=== PATIENT | male | born 1960 | race African-American/Black ===

== ENCOUNTER 2021-05-23 01:02 | Emergency (ER) | payer OTHER, SELFPAY | END 2021-05-23 05:05 | disposition home or self-care (01) | LOC: ERS 01:02 | DX: F10.129 Alcohol abuse with intoxication, unspecified (principal); S00.81XA Abrasion of other part of head, initial encounter; S09.90XA Unspecified injury of head, initial encounter; I10 Essential (primary) hypertension; F17.210 Nicotine dependence, cigarettes, uncomplicated; W19.XXXA Unspecified fall, initial encounter; W22.8XXA Striking against or struck by other objects, initial encounter | CPT/HCPCS: 70450; 72125; 93005 ==

== ENCOUNTER 2021-09-17 20:09 | Emergency (ER) | payer OTHER ==
[2021-09-17] MEDS ORDERED: Albuterol 200 PUFF (6.7GM INHALER) ONE (20:40)
== END 2021-09-17 21:02 | disposition home or self-care (01) ==
LOC: ERS 20:09
DX: J06.9 Acute upper respiratory infection, unspecified (principal); R07.89 Other chest pain; I10 Essential (primary) hypertension; F17.210 Nicotine dependence, cigarettes, uncomplicated; Z79.899 Other long term (current) drug therapy
CPT/HCPCS: 71045

== ENCOUNTER 2021-09-23 11:23 | Inpatient (IN) | payer OTHER ==
[2021-09-23 12:45] LABS: #Basophils 0.1 thou/uL (0.0-0.2); #Eosinphils 0.1 thou/uL (0.0-0.7); #Lymphocytes 2.5 thou/uL (1.20-3.40); #Monocytes 0.7 thou/uL (0.11-0.59); #Neutrophils 5.1 thou/uL (1.40-6.50); %Basophils 0.7 % (0.0-1.0); %Lymphocytes 29.4 % (21.0-51.0); %Monocytes 8.1 % (0.0-10.0); %Neutrophils 60.7 % (42.0-75.0); Hemoglobin 14.2 g/dL (14.0-18.0); Mean Corpuscular HGB CONC 32.3 g/dL (32.0-36.0); Mean Corpuscular Volume 89.9 fL (78.0-98.0); Mean Platelet Volume 7.9 fL (7.4-10.4); Platelet Count 232 thou/uL (130-400); RBC Distribution Width 12.7 % (11.5-14.5); Red Blood Cell (RBC) Count 4.88 mill/uL (4.70-6.10); White Blood Cell (WBC) Count 8.5 thou/uL (4.8-10.8)
[2021-09-23 13:39] LABS: ALT (SGPT) 43 U/L (8-55); AST (SGOT) 62 U/L (5-34); Alkaline Phosphatase 39 U/L (40-110); Anion Gap 15 mmol/L (10-20); BUN (Urea Nitrogen) 5 mg/dL (8.4-25.7); Bilirubin, Total 0.8 mg/dL (0.2-1.2); Calc. Creatinine Clearance 0 mL/min (70-130); Calcium 9.6 mg/dL (7.8-10.44); Carbon Dioxide 28 mmol/L (22-29); Chloride 100 mmol/L (98-107); Estimated GFR 66; Globulin 2.9 g/dL (2.4-3.5); Glucose 97 mg/dL (70-105); Lipase 25 U/L (8-78); Potassium 3.5 mmol/L (3.5-5.1); Protein, Total 6.9 g/dL (6.0-8.3); Sodium 140 mmol/L (136-145)
[2021-09-23] MEDS ORDERED: Iopamidol-370 76% 500 ML 1 ML ONE (14:12)
[2021-09-23 15:11] LABS: Bilirubin Negative (Negative); Blood, Urine Negative (Negative); Clarity Clear (Clear); Glucose, Urine (Dipstick) Normal (Negative); Ketone, Urine Negative (Negative); Leukocyte Negative Leu/uL (Negative); Nitrite Negative (Negative); Protein, Urine (Dipstick) 20 mg/dL (Neg-Trace); Specific Gravity, Urine 1.024 (1.002-1.036)
[2021-09-23 15:16] LABS: SARS-CoV-2 NAA Rapid Test Not Detected (NotDetected)
[2021-09-23 16:01] LABS: Troponin I 0.029 ng/mL (< 0.028)
[2021-09-23 16:01] LABS: Amphetamine Not Detected (NotDetected); Barbiturates Screen Not Detected (NotDetected); Benzodiazepine Screen Not Detected (NotDetected); Cocaine Metabolite Screen Not Detected (NotDetected); Methadone Not Detected (NotDetected); Methamphetamine Not Detected (NotDetected); Opiate Screen Not Detected (NotDetected); Oxycodone Screen Not Detected (NotDetected); Phencyclidine (PCP) Not Detected (NotDetected); THC/Cannabinoid Screen Not Detected (NotDetected); Tricyclic Screen Not Detected (NotDetected)
[2021-09-23 16:28] LABS: Alcohol Less than 10 mg/dL (Less than 10); Salicylate Less than 8.0 mg/dL (15.0-30.0)
[2021-09-23 16:54] VITALS: BMI 28.7
[2021-09-23] MEDS: Nitroglycerin 0.4 MG TAB (25 Tab Bottle) SL PRN ×2 (18:12→18:34)
[2021-09-23 19:09] LABS: Troponin I 0.094 ng/mL (< 0.028)
[2021-09-23] MEDS ORDERED: Albuterol Sulfate 2.5 mg/0.5 ml Neb NEB PRN (20:17)
[2021-09-23] MEDS: Benztropine 1 MG TAB PO SCH (21:25)
[2021-09-23] MEDS: PALIPERIDONE 6 MG PO SCH (21:43)
[2021-09-24 00:24] LABS: Bacteria/HPF None Seen HPF (None Seen); Bilirubin Negative (Negative); Blood, Urine Negative (Negative); Clarity Clear (Clear); Glucose, Urine (Dipstick) Normal (Negative); Ketone, Urine Negative (Negative); Leukocyte Negative Leu/uL (Negative); Nitrite Negative (Negative); Protein, Urine (Dipstick) Negative (Neg-Trace); RBC/HPF 0-3 HPF (0-3); Specific Gravity, Urine 1.017 (1.002-1.036); Squamous Epithelial 0-3 HPF (0-3); Urobilinogen Normal mg/dL (Less than 2); WBC/HPF 0-3 HPF (0-3)
[2021-09-24 00:25] LABS: Urine Culture Reflex No No
[2021-09-24] MEDS: Nitroglycerin 0.4 MG TAB (25 Tab Bottle) SL PRN ×2 (04:15→04:38)
[2021-09-24] MEDS: Acetaminophen 325 MG TAB PO PRN (04:45)
[2021-09-24] MEDS: Nitroglycerin 2% Ointment 1 INCH/1 GM Packet TOP SCH ×3 (04:45→20:53)
[2021-09-24] MEDS: Aspirin 325 mg Enteric Coated Tablet PO SCH (04:52)
[2021-09-24 05:39] LABS: Troponin I 0.123 ng/mL (< 0.028)
[2021-09-24] MEDS: Atorvastatin Calcium 20 MG TAB PO SCH (08:30)
[2021-09-24] MEDS: Amlodipine 5 MG TAB PO SCH (08:30)
[2021-09-24] MEDS: Benztropine 1 MG TAB PO SCH ×2 (08:31→20:53)
[2021-09-24] MEDS ORDERED: Communication Order-Pharmacy FS SCH (17:00)
[2021-09-24] MEDS: PALIPERIDONE 6 MG PO SCH (20:53)
[2021-09-25] MEDS ORDERED: Albuterol Sulfate 2.5 mg/3 ml Neb NEB PRN (02:57)
[2021-09-25 05:10] LABS: Troponin I 0.118 ng/mL (< 0.028)
[2021-09-25 05:12] LABS: Chloride 111 mmol/L (98-107); Potassium 4.1 mmol/L (3.5-5.1); Sodium 139 mmol/L (136-145)
[2021-09-25 05:13] LABS: Calcium 9.4 mg/dL (7.8-10.44); Glucose 84 mg/dL (70-105)
[2021-09-25 05:14] LABS: Triglycerides 50 mg/dL (Less than 150)
[2021-09-25 05:15] LABS: Anion Gap 15 mmol/L (10-20); Carbon Dioxide 17 mmol/L (22-29)
[2021-09-25 05:17] LABS: BUN (Urea Nitrogen) 10 mg/dL (8.4-25.7); Calc. Creatinine Clearance 104 mL/min (70-130); Estimated GFR 99
[2021-09-25 05:18] LABS: Cholesterol 124 mg/dl (< 200 Desired)
[2021-09-25 05:19] LABS: Cardiac Risk 2.7 (Less than 4.5); HDL Cholesterol 46 mg/dL (>60 Neg Risk); LDL Cholesterol, Calculated 68 mg/dL
[2021-09-25] MEDS: Amlodipine 5 MG TAB PO SCH (05:45)
[2021-09-25] MEDS: Aspirin 325 mg Enteric Coated Tablet PO SCH (05:45)
[2021-09-25] MEDS: Benztropine 1 MG TAB PO SCH ×2 (05:46→20:52)
[2021-09-25] MEDS: Nitroglycerin 2% Ointment 1 INCH/1 GM Packet TOP SCH ×3 (05:46→20:54)
[2021-09-25] MEDS: Atorvastatin Calcium 20 MG TAB PO SCH (05:46)
[2021-09-25] MEDS ORDERED: Amlodipine 5 MG TAB PO SCH (09:00)
[2021-09-25] MEDS: Acetaminophen 325 MG TAB PO PRN ×2 (09:02→14:12)
[2021-09-25] MEDS ORDERED: Iopamidol 370 76% 100 ML VIAL ONE (09:42)
[2021-09-25] MEDS ORDERED: Lidocaine 1% (PF) 30 ML VIAL ONE (11:13)
[2021-09-25] MEDS ORDERED: Midazolam HCl 2 mg/2 ml Vial ONE (12:19)
[2021-09-25] MEDS ORDERED: Atropine Sulfate 1 mg/10 ml Syringe ONE (12:20)
[2021-09-25] MEDS ORDERED: Fentanyl 100 MCG/2 ML VIAL ONE (12:20)
[2021-09-25] MEDS ORDERED: Heparin 10,000 UNITS/ 10 ML VIAL ONE (12:20)
[2021-09-25] MEDS ORDERED: hydrALAZINE 20 MG/ML VIAL SLOW IVP PRN (16:10)
[2021-09-25] MEDS ORDERED: Sodium Chloride 0.9% 1,000 ML IV SCH (17:45)
[2021-09-25] MEDS: PALIPERIDONE 6 MG PO SCH (20:53)
[2021-09-26 05:07] LABS: Anion Gap 13 mmol/L (10-20); BUN (Urea Nitrogen) 8 mg/dL (8.4-25.7); Calc. Creatinine Clearance 108 mL/min (70-130); Calcium 9.4 mg/dL (7.8-10.44); Carbon Dioxide 22 mmol/L (22-29); Chloride 105 mmol/L (98-107); Estimated GFR 101; Glucose 85 mg/dL (70-105); Potassium 3.6 mmol/L (3.5-5.1); Sodium 136 mmol/L (136-145)
[2021-09-26] MEDS: Nitroglycerin 2% Ointment 1 INCH/1 GM Packet TOP SCH (07:30)
[2021-09-26 08:11] VITALS: BP 154/82; TEMP 97.6
[2021-09-26] MEDS ORDERED: Amlodipine 10 MG TAB PO SCH (09:00)
[2021-09-26] MEDS: Aspirin 325 mg Enteric Coated Tablet PO SCH (09:35)
[2021-09-26] MEDS: Benztropine 1 MG TAB PO SCH (09:35)
[2021-09-26] MEDS: Atorvastatin Calcium 20 MG TAB PO SCH (09:35)
== END 2021-09-26 10:49 | disposition home or self-care (01) | DRG 281 ==
LOC: ERS 11:23 → 2SW 15:32 → OBSVTOIN 09-25 18:11
PROVIDERS: ADMIT Internal Medicine; ATTEND Hospitalist
PROC: 4A023N7 Measurement of Cardiac Sampling and Pressure, Left Heart, Percutaneous Approach (ICD-10-PCS; principal; 2021-09-25)
PROC: B2111ZZ Fluoroscopy of Multiple Coronary Arteries using Low Osmolar Contrast (ICD-10-PCS; 2021-09-25)
PROC: B2151ZZ Fluoroscopy of Left Heart using Low Osmolar Contrast (ICD-10-PCS; 2021-09-25)
DX: I21.4 Non-ST elevation (NSTEMI) myocardial infarction (principal); F20.0 Paranoid schizophrenia; F31.9 Bipolar disorder, unspecified; F17.210 Nicotine dependence, cigarettes, uncomplicated; Z20.822 Contact with and (suspected) exposure to COVID-19; I35.1 Nonrheumatic aortic (valve) insufficiency; I35.0 Nonrheumatic aortic (valve) stenosis; I11.9 Hypertensive heart disease without heart failure; I25.10 Atherosclerotic heart disease of native coronary artery without angina pectoris; Z79.82 Long term (current) use of aspirin; Z79.899 Other long term (current) drug therapy
CPT/HCPCS: 36415; 71046; 74177; 80048; 80053; 80061; 80306; 80307; 81001; 81003; 83036; 83690; 83880; 84484; 85025; 85379; 93005; 93010; 93306; 93458; 94760; 96374; 99152; 99153; C1769; G0378; J0360; J0461; J1644; J2001; J2250; J3010; J7050; Q9967; U0002

== ENCOUNTER 2022-02-08 15:34 | Emergency (ER) | payer OTHER ==
[2022-02-08 17:21] LABS: #Eosinphils 0.1 thou/uL (0.0-0.7); #Lymphocytes 2.7 thou/uL (1.20-3.40); #Monocytes 0.8 thou/uL (0.11-0.59); #Neutrophils 5.2 thou/uL (1.40-6.50); %Basophils 0.4 % (0.0-1.0); %Eosinophils 1.6 % (0.0-10.0); %Lymphocytes 30.4 % (21.0-51.0); %Monocytes 8.9 % (0.0-10.0); %Neutrophils 58.8 % (42.0-75.0); Mean Corpuscular HGB CONC 32.9 g/dL (32.0-36.0); Mean Corpuscular Hemoglobin 31.1 pg (27.0-31.0); Mean Corpuscular Volume 94.4 fl (78.0-98.0); Mean Platelet Volume 7.4 fL (7.4-10.4); Platelet Count 251 10x3/uL (130-400); RBC Distribution Width 12.5 % (11.5-14.5); Red Blood Cell (RBC) Count 4.84 mill/uL (4.70-6.10); White Blood Cell (WBC) Count 8.8 10x3/uL (4.8-10.8)
[2022-02-08 17:40] LABS: ALT (SGPT) 34 U/L (8-55); AST (SGOT) 38 U/L (5-34); Albumin 4.1 g/dL (3.5-5.0); Alkaline Phosphatase 52 U/L (40-110); Anion Gap 15 mmol/L (10-20); BUN (Urea Nitrogen) 9 mg/dL (8.4-25.7); Bilirubin, Total 0.3 mg/dL (0.2-1.2); Calc. Creatinine Clearance 0 mL/min (70-130); Calcium 9.6 mg/dL (7.8-10.44); Carbon Dioxide 24 mmol/L (22-29); Chloride 104 mmol/L (98-107); Estimated GFR 89; Globulin 3.5 g/dL (2.4-3.5); Glucose 79 mg/dL (70-105); Potassium 4.2 mmol/L (3.5-5.1); Protein, Total 7.6 g/dL (6.0-8.3); Sodium 139 mmol/L (136-145)
== END 2022-02-09 00:53 | disposition home or self-care (01) ==
LOC: ERS 15:34
DX: I10 Essential (primary) hypertension (principal); F17.210 Nicotine dependence, cigarettes, uncomplicated; I44.0 Atrioventricular block, first degree; I45.2 Bifascicular block; Z79.899 Other long term (current) drug therapy
CPT/HCPCS: 36415; 70450; 71045; 80053; 84484; 85025; 93005; 94760

== ENCOUNTER 2022-04-20 08:55 | Observation (INO) | payer OTHER, SELFPAY ==
[2022-04-20 09:25] LABS: #Basophils 0.1 thou/uL (0.0-0.2); #Eosinphils 0.1 thou/uL (0.0-0.7); #Lymphocytes 2.3 thou/uL (1.20-3.40); #Monocytes 0.8 thou/uL (0.11-0.59); %Basophils 0.6 % (0.0-1.0); %Eosinophils 0.8 % (0.0-10.0); %Lymphocytes 25.1 % (21.0-51.0); %Monocytes 8.7 % (0.0-10.0); %Neutrophils 64.8 % (42.0-75.0); Hemoglobin 15.9 g/dL (14.0-18.0); Mean Corpuscular HGB CONC 32.5 g/dL (32.0-36.0); Mean Corpuscular Hemoglobin 30.5 pg (27.0-31.0); Mean Corpuscular Volume 93.8 fl (78.0-98.0); Mean Platelet Volume 8.1 fL (7.4-10.4); Platelet Count 183 10x3/uL (130-400); RBC Distribution Width 13.8 % (11.5-14.5); Red Blood Cell (RBC) Count 5.21 mill/uL (4.70-6.10); White Blood Cell (WBC) Count 9.2 10x3/uL (4.8-10.8)
[2022-04-20] MEDS ORDERED: Iopamidol-370 76% 500 ML 1 ML ONE (09:28)
[2022-04-20 09:44] LABS: ALT (SGPT) 50 U/L (8-55); AST (SGOT) 68 U/L (5-34); Albumin 4.2 g/dL (3.5-5.0); Alkaline Phosphatase 50 U/L (40-110); Anion Gap 19 mmol/L (10-20); BUN (Urea Nitrogen) 8 mg/dL (8.4-25.7); Bilirubin, Total 1.4 mg/dL (0.2-1.2); Calc. Creatinine Clearance 0 mL/min (70-130); Calcium 10.2 mg/dL (7.8-10.44); Carbon Dioxide 23 mmol/L (22-29); Chloride 99 mmol/L (98-107); Estimated GFR 89; Globulin 3.7 g/dL (2.4-3.5); Glucose 106 mg/dL (70-105); Potassium 3.7 mmol/L (3.5-5.1); Protein, Total 7.9 g/dL (6.0-8.3); Sodium 137 mmol/L (136-145)
[2022-04-20 10:07] LABS: CKMB 4.1 ng/mL (0-6.6)
[2022-04-20 10:29] LABS: Acetaminophen Less than 10.0 mcg/mL (10.0-30.0); Alcohol Less than 10 mg/dL (Less than 10); Salicylate Less than 8.0 mg/dL (15.0-30.0)
[2022-04-20 11:25] LABS: Bacteria/HPF None Seen HPF (None Seen); Bilirubin Negative (Negative); Blood, Urine Negative (Negative); Clarity Clear (Clear); Glucose, Urine (Dipstick) Normal (Negative); Ketone, Urine 40 mg/dL (Negative); Leukocyte 25 Leu/uL (Negative); Nitrite Negative (Negative); Protein, Urine (Dipstick) 30 mg/dL (Neg-Trace); RBC/HPF 0-3 HPF (0-3); Squamous Epithelial 0-3 HPF (0-3); Urobilinogen 6 mg/dL (Less than 2); pH, Urine 7.5 (5.0-9.0)
[2022-04-20 11:33] LABS: Amphetamine Not Detected (NotDetected); Barbiturates Screen Not Detected (NotDetected); Benzodiazepine Screen Not Detected (NotDetected); Cocaine Metabolite Screen Not Detected (NotDetected); Methadone Not Detected (NotDetected); Methamphetamine Not Detected (NotDetected); Opiate Screen Not Detected (NotDetected); Oxycodone Screen Not Detected (NotDetected); Phencyclidine (PCP) Not Detected (NotDetected); THC/Cannabinoid Screen Not Detected (NotDetected); Tricyclic Screen Not Detected (NotDetected)
[2022-04-20] MEDS ORDERED: Meclizine HCl 25 MG TAB ONE (12:20)
[2022-04-20] MEDS ORDERED: Aspirin 325 MG TAB ONE (13:06)
[2022-04-20 13:17] LABS: Troponin I 0.013 ng/mL (< 0.028)
[2022-04-20] MEDS ORDERED: Acetaminophen 650 MG Suppository PR PRN (14:07)
[2022-04-20] MEDS ORDERED: Acetaminophen 325 MG TAB PO PRN (14:07)
[2022-04-20 16:26] LABS: Troponin I 0.024 ng/mL (< 0.028)
[2022-04-20 16:27] VITALS: BMI 26.2
[2022-04-20] MEDS: Sodium Chloride 0.9% 1,000 ML IV SCH (18:00)
[2022-04-20] MEDS ORDERED: Lorazepam 2 MG/ML VIAL IM PRN (18:20)
[2022-04-20] MEDS ORDERED: Lorazepam 1 MG TAB PO PRN (18:20)
[2022-04-20] MEDS ORDERED: Ondansetron ODT 4 MG TAB PO PRN (18:20)
[2022-04-20] MEDS ORDERED: Electrolyte Replacement Protocol 1 EACH FS SCH (18:30)
[2022-04-20] MEDS: Benztropine 1 MG TAB PO SCH (20:49)
[2022-04-20] MEDS ORDERED: Atorvastatin Calcium 20 MG TAB PO SCH (21:00)
[2022-04-20] MEDS ORDERED: PALIPERIDONE 6 MG PO SCH (21:00)
[2022-04-21] MEDS: Sodium Chloride 0.9% 1,000 ML IV SCH ×2 (04:03→14:14)
[2022-04-21 05:01] LABS: #Basophils 0.1 thou/uL (0.0-0.2); #Eosinphils 0.1 thou/uL (0.0-0.7); #Monocytes 0.6 thou/uL (0.11-0.59); #Neutrophils 4.1 thou/uL (1.40-6.50); %Basophils 1.2 % (0.0-1.0); %Eosinophils 1.7 % (0.0-10.0); %Lymphocytes 28.6 % (21.0-51.0); %Monocytes 8.6 % (0.0-10.0); Hemoglobin 14.7 g/dL (14.0-18.0); Mean Corpuscular HGB CONC 32.7 g/dL (32.0-36.0); Mean Corpuscular Volume 94.8 fl (78.0-98.0); Platelet Count 155 10x3/uL (130-400); RBC Distribution Width 13.6 % (11.5-14.5); Red Blood Cell (RBC) Count 4.75 mill/uL (4.70-6.10); White Blood Cell (WBC) Count 6.8 10x3/uL (4.8-10.8)
[2022-04-21 05:31] LABS: Anion Gap 12 mmol/L (10-20); BUN (Urea Nitrogen) 6 mg/dL (8.4-25.7); Calc. Creatinine Clearance 95 mL/min (70-130); Calcium 9.5 mg/dL (7.8-10.44); Carbon Dioxide 24 mmol/L (22-29); Chloride 105 mmol/L (98-107); Estimated GFR 99; Glucose 95 mg/dL (70-105); Potassium 3.9 mmol/L (3.5-5.1); Sodium 137 mmol/L (136-145)
[2022-04-21] MEDS ORDERED: Folic Acid 1 MG TAB PO SCH (09:00)
[2022-04-21] MEDS ORDERED: Multivit, Therapeutic 1 TAB PO SCH (09:00)
[2022-04-21] MEDS ORDERED: Aspirin 325 mg Enteric Coated Tablet PO SCH (09:00)
[2022-04-21] MEDS: Benztropine 1 MG TAB PO SCH (09:28)
[2022-04-21 16:06] VITALS: BP 122/77; TEMP 97.7
[2022-04-21] MEDS ORDERED: Lorazepam 1 MG TAB PO PRN (18:20)
[2022-04-22] MEDS ORDERED: Lorazepam 1 MG TAB PO PRN (18:20)
[2022-04-23] MEDS ORDERED: Lorazepam 0.5 MG TAB PO PRN (18:20)
== END 2022-04-21 17:45 | disposition home or self-care (01) ==
LOC: ERS 08:55 → 2SW 13:03
PROVIDERS: ADMIT Hospitalist; ATTEND Physician Assistant
DX: R42 Dizziness and giddiness (principal); R55 Syncope and collapse; I11.9 Hypertensive heart disease without heart failure; E78.5 Hyperlipidemia, unspecified; F20.0 Paranoid schizophrenia; F31.9 Bipolar disorder, unspecified; I08.3 Combined rheumatic disorders of mitral, aortic and tricuspid valves; F17.210 Nicotine dependence, cigarettes, uncomplicated; F14.11 Cocaine abuse, in remission; F10.10 Alcohol abuse, uncomplicated; I67.2 Cerebral atherosclerosis; I25.2 Old myocardial infarction; I25.10 Atherosclerotic heart disease of native coronary artery without angina pectoris; Z79.899 Other long term (current) drug therapy; Z20.822 Contact with and (suspected) exposure to COVID-19; Y90.0 Blood alcohol level of less than 20 mg/100 ml
CPT/HCPCS: 36415; 36416; 70450; 71045; 71275; 80048; 80053; 80306; 80307; 81003; 81015; 82553; 83880; 84484; 85025; 85379; 93005; 93306; 96360; 96361; G0378; J7050; Q9967; U0003; U0005

== ENCOUNTER 2023-11-15 13:23 | Emergency (ER) | payer OTHER ==
[2023-11-15 14:41] LABS: #Basophils 0.07 10x3/uL (0.0-0.2); %Basophils 0.9 % (0.0-1.0); %Lymphocytes 31.5 % (21.0-51.0); %Monocytes 8.1 % (0.0-10.0); %Neutrophils 57.2 % (42.0-75.0); Hematocrit 38.1 % (42.0-52.0); Mean Corpuscular HGB CONC 31.5 g/dL (32.0-36.0); Mean Corpuscular Hemoglobin 28.8 pg (27.0-31.0); Mean Corpuscular Volume 91.4 fL (78.0-98.0); Mean Platelet Volume 9.3 fL (7.4-10.4); Platelet Count 239 10x3/uL (130-400); RBC Distribution Width 15.9 % (11.5-14.5); Red Blood Cell (RBC) Count 4.17 mill/uL (4.70-6.10)
[2023-11-15 14:57] LABS: ALT (SGPT) 29 U/L (8-55); AST (SGOT) 31 U/L (5-34); Albumin 3.7 g/dL (3.4-4.8); Alkaline Phosphatase 47 U/L (40-110); Anion Gap 10 mmol/L (10-20); BUN (Urea Nitrogen) 16 mg/dL (8.4-25.7); Bilirubin, Total 0.4 mg/dL (0.2-1.2); Calc. Creatinine Clearance 0 mL/min (70-130); Calcium 9.4 mg/dL (7.8-10.44); Carbon Dioxide 27 mmol/L (23-31); Chloride 107 mmol/L (98-107); Estimated GFR 78; Globulin 3.4 g/dL (2.4-3.5); Glucose 75 mg/dL (80-115); Potassium 3.8 mmol/L (3.5-5.1); Protein, Total 7.1 g/dL (5.8-8.1); Sodium 140 mmol/L (136-145)
[2023-11-15 15:03] LABS: Troponin I Less than 0.010 ng/mL (< 0.028)
== END 2023-11-15 17:25 | disposition left against medical advice (07) ==
LOC: ERS 13:23
DX: Z53.21 Procedure and treatment not carried out due to patient leaving prior to being seen by health care provider (principal)
CPT/HCPCS: 36415; 71045; 80053; 84484; 85025; 93005

== ENCOUNTER 2024-12-14 13:41 | Inpatient (IN) | payer OTHER, SELFPAY ==
[~2024-12-14 13:41] MED LIST: Iopamidol-370 76% 500 ML MDV (1 ML CHARGE) ONE
[2024-12-14] MEDS ORDERED: Acetaminophen 500 MG TAB ONE (14:41)
[2024-12-14 14:59] LABS: #Basophils 0.04 10x3/uL (0.0-0.2); #Eosinophils 0.08 10x3/uL (0.0-0.7); #Monocytes 0.67 10x3/uL (0.11-0.59); #Neutrophils 3.77 10x3/uL (1.40-6.50); %Basophils 0.7 % (0.0-1.0); %Eosinophils 1.4 % (0.0-10.0); %Lymphocytes 22.3 % (21.0-51.0); %Monocytes 11.4 % (0.0-10.0); %Neutrophils 64.0 % (42.0-75.0); Hematocrit 32.5 % (42.0-52.0); Hemoglobin 10.5 g/dL (14.0-18.0); Mean Corpuscular Hemoglobin 24.1 pg (27.0-31.0); Mean Corpuscular Volume 74.5 fL (78.0-98.0); Platelet Count 319 10x3/uL (130-400); Red Blood Cell (RBC) Count 4.36 mill/uL (4.70-6.10); White Blood Cell (WBC) Count 5.88 10x3/uL (4.8-10.8)
[2024-12-14 15:15] LABS: ALT (SGPT) 35 U/L (Less than 45); AST (SGOT) 49 U/L (11-34); Albumin 4.0 g/dL (3.1-4.5); Alkaline Phosphatase 42 U/L (40-110); Anion Gap 16 mmol/L (10-20); BUN (Urea Nitrogen) 11 mg/dL (8.4-25.7); Bilirubin, Total 0.3 mg/dL (0.3-1.2); Calc. Creatinine Clearance 0 mL/min (70-130); Calcium 9.8 mg/dL (7.8-10.44); Carbon Dioxide 23 mmol/L (23-31); Chloride 101 mmol/L (98-107); Globulin 4.0 g/dL (2.4-3.5); Glucose 64 mg/dL (80-115); Lipase 44 U/L (8-78); Potassium 3.9 mmol/L (3.5-5.1); Sodium 136 mmol/L (136-145)
[2024-12-14 15:29] LABS: Anisocytosis MODERATE=16-30 cells HPF (0-5); Burr Cells SLIGHT = 2-5 cells HPF (0-1); Macrocytosis SLIGHT = 6-15 cells HPF (0-5); Platelet Adequacy Comment Platelets Normal; Poikilocytosis MODERATE=16-30 cells HPF (0-5); Polychromasia SLIGHT = 2-3 cells HPF (0-2); Schistocytes SLIGHT = 2-5 cells HPF (0-1); Target Cells SLIGHT = 2-5 cells HPF (0-1)
[2024-12-14 15:29] LABS: Bacteria/HPF None Seen HPF (None Seen); CAUTI Indications for Culture Immunosuppressed; Glucose, Urine (Dipstick) Normal (Negative); Leukocyte Negative Leu/uL (Negative); Protein, Urine (Dipstick) Negative (Neg-Trace); RBC/HPF 0-3 HPF (0-3); Specific Gravity, Urine 1.008 (1.002-1.036); WBC/HPF 0-3 HPF (0-3)
[2024-12-14 15:31] LABS: Urine Culture Reflex Yes Yes
[2024-12-14] MEDS ORDERED: Acetaminophen 325 MG TAB PO PRN (17:06)
[2024-12-14] MEDS ORDERED: Guaifenesin DM 100-10/5 ML UDCUP PO PRN (17:06)
[2024-12-14] MEDS ORDERED: Electrolyte Replacement Protocol 1 EACH FS SCH (17:15)
[2024-12-14] MEDS: Enoxaparin 40 MG (0.4 mL) SYRINGE SC SCH (21:19)
[2024-12-14] MEDS: Famotidine/PF 20 mg/2ml Vial SLOW IVP SCH (21:19)
[2024-12-14] MEDS: Acetaminophen/Codeine 30-300mg Tablet PO PRN (21:19)
[2024-12-14 22:59] VITALS: BMI 23.5
[2024-12-15 05:50] LABS: #Basophils 0.06 10x3/uL (0.0-0.2); #Eosinophils 0.16 10x3/uL (0.0-0.7); #Monocytes 0.62 10x3/uL (0.11-0.59); #Neutrophils 2.00 10x3/uL (1.40-6.50); %Basophils 1.2 % (0.0-1.0); %Eosinophils 3.2 % (0.0-10.0); %Lymphocytes 42.4 % (21.0-51.0); %Monocytes 12.5 % (0.0-10.0); %Neutrophils 40.5 % (42.0-75.0); Hematocrit 33.5 % (42.0-52.0); Hemoglobin 10.5 g/dL (14.0-18.0); Mean Corpuscular Hemoglobin 23.6 pg (27.0-31.0); Mean Corpuscular Volume 75.3 fL (78.0-98.0); Platelet Count 327 10x3/uL (130-400); Red Blood Cell (RBC) Count 4.45 mill/uL (4.70-6.10); White Blood Cell (WBC) Count 4.95 10x3/uL (4.8-10.8)
[2024-12-15 06:09] LABS: ALT (SGPT) 28 U/L (Less than 45); AST (SGOT) 35 U/L (11-34); Albumin 3.5 g/dL (3.1-4.5); Alkaline Phosphatase 37 U/L (40-110); Anion Gap 11 mmol/L (10-20); BUN (Urea Nitrogen) 12 mg/dL (8.4-25.7); Bilirubin, Total 0.3 mg/dL (0.3-1.2); Calc. Creatinine Clearance 74 mL/min (70-130); Calcium 9.4 mg/dL (7.8-10.44); Carbon Dioxide 25 mmol/L (23-31); Chloride 108 mmol/L (98-107); Globulin 3.5 g/dL (2.4-3.5); Glucose 76 mg/dL (80-115); Potassium 3.6 mmol/L (3.5-5.1); Sodium 140 mmol/L (136-145)
[2024-12-15 09:57] LABS: Iron 21 ug/dL (65-175); Iron Binding Capacity, Total 465 mcg/dL (261-462)
[2024-12-15] MEDS: Nitroglycerin 0.4 MG TAB (25 Tab Bottle) SL PRN (22:05)
[2024-12-16 05:08] LABS: Hematocrit 34.9 % (42.0-52.0); Hemoglobin 10.7 g/dL (14.0-18.0); Mean Corpuscular Hemoglobin 23.5 pg (27.0-31.0); Mean Corpuscular Volume 76.7 fL (78.0-98.0); Platelet Count 361 10x3/uL (130-400); Red Blood Cell (RBC) Count 4.55 mill/uL (4.70-6.10); White Blood Cell (WBC) Count 5.98 10x3/uL (4.8-10.8)
[2024-12-16] MEDS: Isosorbide Mononitrate 60 MG ER.TAB PO SCH (09:38)
[2024-12-16] MEDS: Aspirin Chewable 81 MG TAB PO SCH (09:38)
[2024-12-16] MEDS: Ferrous Gluconate 324 MG TAB PO SCH (09:38)
[2024-12-16] MEDS: Methocarbamol 500 MG TAB PO PRN (11:36)
[2024-12-17] MEDS ORDERED: Ketorolac Tromethamine 30 MG (1 mL) VIAL IVP PRN (09:14)
[2024-12-17] MEDS: Ibuprofen 200 MG TAB PO SCH (12:22)
[2024-12-17 12:34] VITALS: BP 158/86; TEMP 97.6
== END 2024-12-17 15:24 | disposition home or self-care (01) | DRG 307 ==
LOC: ERS 13:41 → OBS 16:50 → OBSVTOIN 12-15 15:29
PROVIDERS: ADMIT Hospitalist; ATTEND Student in an Organized Health Care Education/Training Program
DX: I35.0 Nonrheumatic aortic (valve) stenosis (principal); I42.8 Other cardiomyopathies; R07.9 Chest pain, unspecified; F17.210 Nicotine dependence, cigarettes, uncomplicated; I25.10 Atherosclerotic heart disease of native coronary artery without angina pectoris; E78.5 Hyperlipidemia, unspecified; I10 Essential (primary) hypertension; F31.9 Bipolar disorder, unspecified; D50.9 Iron deficiency anemia, unspecified; I48.0 Paroxysmal atrial fibrillation; F20.9 Schizophrenia, unspecified; I25.2 Old myocardial infarction; Z98.890 Other specified postprocedural states; Z95.0 Presence of cardiac pacemaker; Z79.899 Other long term (current) drug therapy; Z79.82 Long term (current) use of aspirin
CPT/HCPCS: 36415; 70450; 71045; 74177; 80053; 81001; 82274; 82728; 83540; 83550; 83690; 84484; 85025; 85027; 87086; 93005; 93010; 93306; 93923; 94760; 96372; 96374; 96376; G0378; J1308; J1650; Q9967

== ENCOUNTER 2025-01-04 18:49 | Emergency (ER) | payer SELFPAY ==
[2025-01-04 19:30] LABS: #Basophils 0.05 10x3/uL (0.0-0.2); #Eosinophils 0.05 10x3/uL (0.0-0.7); #Monocytes 0.81 10x3/uL (0.11-0.59); #Neutrophils 4.34 10x3/uL (1.40-6.50); %Basophils 0.7 % (0.0-1.0); %Eosinophils 0.7 % (0.0-10.0); %Lymphocytes 30.0 % (21.0-51.0); %Monocytes 10.8 % (0.0-10.0); %Neutrophils 57.5 % (42.0-75.0); Hematocrit 33.4 % (42.0-52.0); Hemoglobin 10.5 g/dL (14.0-18.0); Mean Corpuscular Hemoglobin 23.4 pg (27.0-31.0); Mean Corpuscular Volume 74.4 fL (78.0-98.0); Platelet Count 279 10x3/uL (130-400); Red Blood Cell (RBC) Count 4.49 mill/uL (4.70-6.10); White Blood Cell (WBC) Count 7.53 10x3/uL (4.8-10.8)
[2025-01-04 19:39] LABS: Anion Gap 15 mmol/L (10-20); BUN (Urea Nitrogen) 6 mg/dL (8.4-25.7); Calc. Creatinine Clearance 0 mL/min (70-130); Carbon Dioxide 25 mmol/L (23-31); Chloride 105 mmol/L (98-107); Potassium 3.7 mmol/L (3.5-5.1); Sodium 141 mmol/L (136-145)
[2025-01-04 19:40] LABS: ALT (SGPT) 37 U/L (Less than 45); AST (SGOT) 49 U/L (11-34); Albumin 4.0 g/dL (3.1-4.5); Alkaline Phosphatase 38 U/L (40-110); Bilirubin, Total 0.4 mg/dL (0.3-1.2); Calcium 9.6 mg/dL (7.8-10.44); Globulin 3.6 g/dL (2.4-3.5); Glucose 85 mg/dL (80-115)
[2025-01-04] MEDS ORDERED: Droperidol 5 MG/2 ML VIAL ONE (19:40)
[2025-01-04 19:56] LABS: Anisocytosis SLIGHT = 6-15 cells HPF (0-5); Microcytosis SLIGHT = 6-15 cells HPF (0-5); Platelet Adequacy Comment Platelets Normal; Polychromasia SLIGHT = 2-3 cells HPF (0-2)
== END 2025-01-04 22:57 | disposition home or self-care (01) ==
LOC: ERS 18:49
DX: I35.0 Nonrheumatic aortic (valve) stenosis (principal); R51.9 Headache, unspecified; I10 Essential (primary) hypertension; I25.2 Old myocardial infarction; F17.210 Nicotine dependence, cigarettes, uncomplicated; Z95.0 Presence of cardiac pacemaker; Z75.3 Unavailability and inaccessibility of health-care facilities; Z55.6 Problems related to health literacy
CPT/HCPCS: 70450; 71045; 80053; 83880; 84484; 85025; 93005; 94760; 96374; J1790

== ENCOUNTER 2025-01-30 15:38 | Inpatient (IN) | payer SELFPAY ==
[2025-01-30 16:10] LABS: #Basophils 0.04 10x3/uL (0.0-0.2); #Eosinophils 0.18 10x3/uL (0.0-0.7); #Monocytes 0.63 10x3/uL (0.11-0.59); #Neutrophils 4.12 10x3/uL (1.40-6.50); %Basophils 0.5 % (0.0-1.0); %Eosinophils 2.4 % (0.0-10.0); %Lymphocytes 33.2 % (21.0-51.0); %Monocytes 8.4 % (0.0-10.0); %Neutrophils 55.4 % (42.0-75.0); Hematocrit 35.0 % (42.0-52.0); Hemoglobin 11.1 g/dL (14.0-18.0); Mean Corpuscular Hemoglobin 24.0 pg (27.0-31.0); Mean Corpuscular Volume 75.6 fL (78.0-98.0); Platelet Count 255 10x3/uL (130-400); Red Blood Cell (RBC) Count 4.63 mill/uL (4.70-6.10); White Blood Cell (WBC) Count 7.46 10x3/uL (4.8-10.8)
[2025-01-30 16:26] LABS: ALT (SGPT) 23 U/L (Less than 45); AST (SGOT) 35 U/L (11-34); Albumin 3.7 g/dL (3.1-4.5); Alkaline Phosphatase 38 U/L (40-110); Anion Gap 13 mmol/L (10-20); BUN (Urea Nitrogen) 8 mg/dL (8.4-25.7); Bilirubin, Total 0.2 mg/dL (0.3-1.2); Calc. Creatinine Clearance 0 mL/min (70-130); Calcium 9.4 mg/dL (7.8-10.44); Carbon Dioxide 24 mmol/L (23-31); Chloride 103 mmol/L (98-107); Globulin 3.5 g/dL (2.4-3.5); Glucose 74 mg/dL (80-115); Potassium 3.6 mmol/L (3.5-5.1); Sodium 136 mmol/L (136-145)
[2025-01-30] MEDS ORDERED: Ondansetron PF 4 MG/2 ML Vial IVP PRN (22:18)
[2025-01-31] MEDS: Acetaminophen 325 MG TAB PO PRN (00:03)
[2025-01-31 00:47] VITALS: BMI 24.9
[2025-01-31 05:06] LABS: #Basophils 0.04 10x3/uL (0.0-0.2); #Eosinophils 0.21 10x3/uL (0.0-0.7); #Monocytes 0.54 10x3/uL (0.11-0.59); #Neutrophils 3.49 10x3/uL (1.40-6.50); %Basophils 0.6 % (0.0-1.0); %Eosinophils 3.3 % (0.0-10.0); %Lymphocytes 33.2 % (21.0-51.0); %Monocytes 8.4 % (0.0-10.0); %Neutrophils 54.3 % (42.0-75.0); Hematocrit 32.3 % (42.0-52.0); Hemoglobin 10.1 g/dL (14.0-18.0); Mean Corpuscular Hemoglobin 23.9 pg (27.0-31.0); Mean Corpuscular Volume 76.5 fL (78.0-98.0); Platelet Count 252 10x3/uL (130-400); Red Blood Cell (RBC) Count 4.22 mill/uL (4.70-6.10); White Blood Cell (WBC) Count 6.42 10x3/uL (4.8-10.8)
[2025-01-31 05:13] LABS: Anion Gap 9 mmol/L (10-20); BUN (Urea Nitrogen) 8 mg/dL (8.4-25.7); Calc. Creatinine Clearance 86 mL/min (70-130); Calcium 8.7 mg/dL (7.8-10.44); Carbon Dioxide 25 mmol/L (23-31); Chloride 110 mmol/L (98-107); Glucose 87 mg/dL (80-115); Potassium 3.5 mmol/L (3.5-5.1); Sodium 140 mmol/L (136-145)
[2025-01-31 08:58] LABS: CAUTI Indications for Culture Dysuria,urgency,freq; Glucose, Urine (Dipstick) Normal (Negative); Leukocyte Negative Leu/uL (Negative); Protein, Urine (Dipstick) Negative (Neg-Trace); RBC/HPF 0-3 HPF (0-3); Specific Gravity, Urine 1.007 (1.002-1.036); WBC/HPF 0-3 HPF (0-3)
[2025-01-31 08:59] LABS: Bacteria/HPF 1+ HPF (None Seen); Urine Culture Reflex No No
[2025-01-31] MEDS ORDERED: FLU (Fluarix Triv) 25-26 (6MOS UP)/PF 45 MCG/0.5 ML Syringe IM ONE (09:00)
[2025-01-31] MEDS: Metoprolol Succinate XL 25 MG ER.TAB PO SCH (10:30)
[2025-01-31] MEDS: Aspirin Chewable 81 MG TAB PO SCH (10:30)
[2025-01-31] MEDS: Benztropine 1 MG TAB PO SCH (10:30)
[2025-01-31] MEDS: Isosorbide Mononitrate 60 MG ER.TAB PO SCH (10:30)
[2025-01-31] MEDS: Pantoprazole 40 MG DR.TAB PO SCH (10:30)
[2025-01-31] MEDS: HYDROcodone/Acetaminophen 5/325 mg Tablet PO PRN (20:53)
[2025-01-31] MEDS: Mirtazapine 15 MG TAB PO SCH (20:54)
[2025-02-01 05:39] LABS: Hemoglobin 10.1 g/dL (14.0-18.0)
[2025-02-01 06:09] LABS: Magnesium 2.0 mg/dL (1.6-2.6); Potassium 3.5 mmol/L (3.5-5.1)
[2025-02-01] MEDS: Pantoprazole 40 MG DR.TAB PO SCH (08:50)
[2025-02-01 13:48] VITALS: TEMP 97.7
[2025-02-01 15:59] VITALS: BP 103/59
== END 2025-02-01 17:00 | disposition home or self-care (01) | DRG 307 ==
LOC: ERS 15:38 → 2NO 21:17 → OBSVTOIN 01-31 13:12
PROVIDERS: ADMIT Internal Medicine; ATTEND Internal Medicine
DX: I35.0 Nonrheumatic aortic (valve) stenosis (principal); R07.89 Other chest pain; I10 Essential (primary) hypertension; I25.10 Atherosclerotic heart disease of native coronary artery without angina pectoris; F20.9 Schizophrenia, unspecified; E78.5 Hyperlipidemia, unspecified; Z79.899 Other long term (current) drug therapy
CPT/HCPCS: 36415; 36416; 71045; 80048; 80053; 81001; 83735; 84132; 84484; 85018; 85025; 93005; 93306; 93880